=== PATIENT | female | born 1990 | race Caucasian/White ===

== ENCOUNTER 2016-07-31 19:30 | Emergency (ER) | payer BC ==
[2016-07-31 19:37] VITALS: O2SAT 98
[2016-07-31] MEDS ORDERED: ONDANSETRON 4 MG/2 ML VIAL IVP ONE (19:50)
[2016-07-31] MEDS ORDERED: NS 1,000 ML IV ONE (19:50)
[2016-07-31 20:05] LABS: % IMMATURE GRANULYOCYTES 0.3 % (0.0-1.1); ABSOLUTE IMMATURE GRANULOCYTES 0.04 10^3/uL (0.00-0.10); ADD DIFF? NO; ADD MORPH? NO; ADD SCAN? NO; ATYPICAL LYMPHOCYTE FLAG 0 (0-99); FRAGMENT RBC FLAG 0 (0-99); HEMATOCRIT 45.4 % (38.0-47.0); HEMOGLOBIN 15.2 g/dL (12.6-16.3); LEFT SHIFT FLG 0 (0-99); LIPEMIA HEMOLYSIS FLAG 80 (0-99); MEAN CELL HEMOGLOBIN 29.5 pg (27.9-34.1); MEAN CELL HEMOGLOBIN CONCENTR. 33.5 g/dL (32.4-36.7); MEAN CELL VOLUME 88.2 fL (81.5-99.8); MEAN PLATELET VOLUME 10.6 fL (8.7-11.7); PLATELET CLUMPS FLAG 0 (0-99); PLATELET COUNT 318 10^3/uL (150-400); RED BLOOD CELL COUNT 5.15 10^6/uL (4.18-5.33); RED CELL DISTRIBUTION WIDTH 13.6 % (11.5-15.2)
[2016-07-31 20:16] LABS: ALANINE AMINOTRANSFERASE 31 IU/L (9-52); ALBUMIN 4.7 g/dL (3.5-5.0); ALKALINE PHOSPHATASE 83 IU/L (38-126); ANION GAP 14 mEq/L (8-16); ASPARTATE AMINOTRANSFERASE 28 IU/L (14-46); BILIRUBIN,TOTAL 0.8 mg/dL (0.1-1.4); BILIRUBIN-CONJUGATED 0.5 mg/dL (0.0-0.5); BILIRUBIN-UNCONJUGATED 0.3 mg/dL (0.0-1.1); CALCIUM 9.8 mg/dL (8.5-10.4); CARBON DIOXIDE 20 mEq/l (22-31); CHLORIDE 102 mEq/L (97-110); CREATININE 0.7 mg/dL (0.6-1.0); GLOMERULAR FILTRATION RATE > 60; GLUCOSE 88 mg/dL (70-100); SODIUM 136 mEq/L (134-144)
[2016-07-31 20:56] LABS: COLOR YELLOW; LEUKOCYTE ESTERASE,URINE NEGATIVE (NEGATIVE); NITRITE,URINE NEGATIVE (NEGATIVE)
--- NOTE | 2016-07-31 21:05 | EDPHY ---
H & P Stated Complaint: vomiting x2h, shaking, denies abd pain Time Seen by Provider: 07/31/16 19:44 HPI/ROS: Chief complaint: Nausea and vomiting History of present illness: This is a 26-year-old female who presents to the emergency department for evaluation of nausea and vomiting. Patient reports the onset of symptoms earlier today. States symptoms have been persistent. She denies precipitating factors. She denies alleviating factors. She has had some abdominal cramping associated as well as feeling shaky with the nausea and vomiting. She denies other associated signs or symptoms including no fevers or chills, no diarrhea or constipation, no urinary symptoms. She denies sick contacts, foreign travel or antibiotic use. Review of systems: A 10 point review of systems was obtained and other than described above was negative - Personal History LMP (Females 10-55): 15-21 Days Ago Current Tetanus/Diphtheria Vaccine: Unsure Current Tetanus Diphtheria and Acellular Pertussis (TDAP): Unsure - Medical/Surgical History Hx Asthma: No Hx Chronic Respiratory Disease: No Hx Diabetes: No Hx Cardiac Disease: No Hx Renal Disease: No Hx Cirrhosis: No Hx Alcoholism: No Hx HIV/AIDS: No Hx Splenectomy or Spleen Trauma: No Other PMH: denies - Social History Smoking Status: Never smoked - Physical Exam Exam: General Appearance: Alert, nontoxic. Eyes: Pupils equal and round no pallor or injection. ENT, Mouth: Mucous membranes moist. Respiratory: There are no retractions, lungs are clear to auscultation. Cardiovascular: Regular rate and rhythm. Gastrointestinal: Bowel sounds normal. Abdomen soft, nondistended, nontender. Neurological: Alert and oriented x4. Strength and sensation intact and symmetrical. Skin: Warm and dry, no rashes. Musculoskeletal: Neck is supple nontender. Extremities are symmetrical, full range of motion. Psychiatric: Patient is oriented X 3, there is no agitation. Constitutional: Initial Vital Signs Temperature (C) 36.5 C 07/31/16 19:33 Heart Rate 118 H 07/31/16 19:33 Respiratory Rate 16 07/31/16 19:33 Blood Pressure 145/95 H 07/31/16 19:33 O2 Sat (%) 98 07/31/16 19:33 O2 Delivery Mode Room Air Allergies/Adverse Reactions: amphetamine [From Adderall] Allergy (Verified 07/31/16 19:37) dextroamphetamine [From Adderall] Allergy (Verified 07/31/16 19:37) Home Medications: Medication Instructions Recorded Adderall 07/31/16 Ondansetron Odt [Zofran Odt 4 mg 4 mg PO Q4 #6 tab 07/31/16 (*)] Medical Decision Making ED Course/Re-evaluation: Patient seen under the supervision of my secondary supervising physician Dr. Wilfredo Stinson. Patient presents to the emergency department for evaluation of nausea and vomiting. On presentation she is nontoxic. Physical exam is unremarkable. Serial abdominal exams are performed during her ER course and remain benign. Lab studies reveal mild leukocytosis, likely stress reaction. They are otherwise benign. My suspicion for serious underlying pathology is low. I do not believe imaging studies are warranted. She has been IV hydrated and symptomatically treated with Zofran. She is feeling much better. She is tolerating oral challenges. She is comfortable with being discharged home. Home care is discussed. Return precautions are given. Patient voiced understanding and agreement with plan. Differential Diagnosis: Included but not limited to gastritis, gastroenteritis, biliary tract disease pancreatitis, colitis, bowel obstruction can't be urinary tract disease - Data Points Laboratory Results: Laboratory Results 07/31/16 19:50 07/31/16 19:50 07/31/16 07/31/16 07/31/16 20:45 19:50 19:50 WBC RBC Hgb Hct MCV MCH MCHC RDW Plt Count MPV Neut % (Auto) Lymph % (Auto) Bates % (Auto) Eos % (Auto) Baso % (Auto) Nucleat RBC Rel Count Absolute Neuts (auto) Absolute Lymphs (auto) Absolute Monos (auto) Absolute Eos (auto) Absolute Basos (auto) Absolute Nucleated RBC Immature Gran % Immature Gran # Sodium 136 mEq/L mEq/L (134-144) Potassium 4.0 mEq/L mEq/L (3.5-5.2) Chloride 102 mEq/L mEq/L (97-110) Carbon Dioxide 20 mEq/l L mEq/l (22-31) Anion Gap 14 mEq/L mEq/L (8-16) BUN 12 mg/dL mg/dL (7-23) Creatinine 0.7 mg/dL mg/dL (0.6-1.0) Estimated GFR > 60 Glucose 88 mg/dL mg/dL (70-100) Calcium 9.8 mg/dL mg/dL (8.5-10.4) Total Bilirubin 0.8 mg/dL mg/dL (0.1-1.4) Conjugated Bilirubin 0.5 mg/dL mg/dL (0.0-0.5) Unconjugated Bilirubin 0.3 mg/dL mg/dL (0.0-1.1) AST 28 IU/L IU/L (14-46) ALT 31 IU/L IU/L (9-52) Alkaline Phosphatase 83 IU/L IU/L (38-126) Total Protein 8.0 g/dL g/dL (6.3-8.2) Albumin 4.7 g/dL g/dL (3.5-5.0) Lipase 79.0 IU/L IU/L (23-300) Beta HCG, Qual NEGATIVE Urine Color YELLOW Urine Appearance CLEAR Urine pH 6.0 (5.0-7.5) Ur Specific [place] 1.016 (1.002-1.030) Urine Protein NEGATIVE (NEGATIVE) Urine Ketones 1+ H (NEGATIVE) Urine Blood NEGATIVE (NEGATIVE) Urine Nitrate NEGATIVE (NEGATIVE) Urine Bilirubin NEGATIVE (NEGATIVE) Urine Urobilinogen NEGATIVE EU EU (0.2-1.0) Ur Leukocyte Esterase NEGATIVE (NEGATIVE) Ur Culture Indicated? NOT INDICATED (NI) Urine Glucose NEGATIVE (NEGATIVE) 07/31/16 19:50 WBC 14.57 10^3/uL H 10^3/uL (3.80-9.50) RBC 5.15 10^6/uL 10^6/uL (4.18-5.33) Hgb 15.2 g/dL g/dL (12.6-16.3) Hct 45.4 % % (38.0-47.0) MCV 88.2 fL fL (81.5-99.8) MCH 29.5 pg pg (27.9-34.1) MCHC 33.5 g/dL g/dL (32.4-36.7) RDW 13.6 % % (11.5-15.2) Plt Count 318 10^3/uL 10^3/uL (150-400) MPV 10.6 fL fL (8.7-11.7) Neut % (Auto) 67.1 % % (39.3-74.2) Lymph % (Auto) 27.6 % % (15.0-45.0) Bates % (Auto) 4.2 % L % (4.5-13.0) Eos % (Auto) 0.3 % L % (0.6-7.6) Baso % (Auto) 0.5 % % (0.3-1.7) Nucleat RBC Rel Count 0.0 % % (0.0-0.2) Absolute Neuts (auto) 9.79 10^3/uL H 10^3/uL (1.70-6.50) Absolute Lymphs (auto) 4.02 10^3/uL H 10^3/uL (1.00-3.00) Absolute Monos (auto) 0.61 10^3/uL 10^3/uL (0.30-0.80) Absolute Eos (auto) 0.04 10^3/uL 10^3/uL (0.03-0.40) Absolute Basos (auto) 0.07 10^3/uL 10^3/uL (0.02-0.10) Absolute Nucleated RBC 0.00 10^3/uL 10^3/uL (0-0.01) Immature Gran % 0.3 % % (0.0-1.1) Immature Gran # 0.04 10^3/uL 10^3/uL (0.00-0.10) Sodium Potassium Chloride Carbon Dioxide Anion Gap BUN Creatinine Estimated GFR Glucose Calcium Total Bilirubin Conjugated Bilirubin Unconjugated Bilirubin AST ALT Alkaline Phosphatase Total Protein Albumin Lipase Beta HCG, Qual Urine Color Urine Appearance Urine pH Ur Specific [place] Urine Protein Urine Ketones Urine Blood Urine Nitrate Urine Bilirubin Urine Urobilinogen Ur Leukocyte Esterase Ur Culture Indicated? Urine Glucose Medications Given: Discontinued Medications Sodium Chloride (Ns) 1,000 mls @ 0 mls/hr IV ONCE ONE PRN Reason: Wide Open Stop: 07/31/16 19:51 Last Admin: 07/31/16 20:02 Dose: 1,000 mls Ondansetron HCl (Zofran) 4 mg IVP EDNOW ONE Stop: 07/31/16 19:51 Last Admin: 07/31/16 20:02 Dose: 4 mg Departure - Departure Disposition: Home, Routine, Self-Care Clinical Impression: Vomiting Qualifiers: Vomiting type: unspecified Vomiting Intractability: non-intractable Nausea presence: with nausea Qualified Code(s): R11.2 - Nausea with vomiting, unspecified Condition: Good Instructions: Acute Nausea and Vomiting (ED) Additional Instructions: Follow-up with a primary care doctor for recheck If symptoms worsen or new symptoms develop return to the emergency room for recheck Referrals: ADELAIDA BAKER [Other] - As per Instructions [facility],. [Clinic] - As per Instructions Mikel Bardales MD [Medical Doctor] - As per Instructions Prescriptions: Ondansetron Odt [Zofran Odt 4 mg (*)] 4 mg PO Q4 #6 tab
[2016-07-31 21:15] VITALS: BP 122/85; PULSE 96; RESP 20; TEMP 97.9
== END 2016-07-31 21:35 | disposition home or self-care (01) ==
DX: R11.2 Nausea with vomiting, unspecified (principal)
CPT/HCPCS: 96374; J2405

== ENCOUNTER 2018-07-22 01:56 | Inpatient (IN) | payer OTHER ==
[2018-07-22] MEDS ORDERED: OLIVE OIL 118 ML BTL MISC PRN (02:34)
[2018-07-22] MEDS ORDERED: EPSOM SALT 454 GM TP PRN (02:34)
[2018-07-22] MEDS ORDERED: TERBUTALINE SULFATE 1 MG/ML VIAL IV PRN (02:34)
[2018-07-22] MEDS ORDERED: MISOPROSTOL 200 MCG TAB PO PRN (02:34)
[2018-07-22] MEDS ORDERED: AMMONIA AROMATIC 1 EACH AMP IH PRN (02:34)
[2018-07-22] MEDS ORDERED: LIDOCAINE 1% 300 MG/30 ML SDV SC PRN (02:34)
[2018-07-22] MEDS ORDERED: LR 1,000 ML IV PRN (02:34)
[2018-07-22] MEDS ORDERED: IBUPROFEN 600 MG TAB PO PRN (02:34)
[2018-07-22] MEDS ORDERED: OXYTOCIN/RINGERS LACTATE 1,000 ML IV PRN (02:34)
[2018-07-22] MEDS ORDERED: OLIVE OIL 118 ML BTL MISC ONE (02:50)
[2018-07-22] MEDS ORDERED: AMMONIA AROMATIC 1 EACH AMP IH ONE (02:50)
[2018-07-22] MEDS ORDERED: LIDOCAINE 1% 300 MG/30 ML SDV ONE (02:50)
[2018-07-22] MEDS ORDERED: TERBUTALINE SULFATE 1 MG/ML VIAL ONE (02:50)
[2018-07-22] MEDS ORDERED: OXYTOCIN 10 UNIT/ML VIAL ONE (02:51)
[2018-07-22] MEDS ORDERED: MISOPROSTOL 200 MCG TAB ONE (02:51)
[2018-07-22 02:55] LABS: PLATELET COUNT 197 10^3/uL (150-400)
--- NOTE | 2018-07-22 04:58 | GHP ---
[f rep st] PREOP HISTORY AND PHYSICAL DATE OF ADMISSION: 07/22/2018 HISTORY OF PRESENT ILLNESS: The patient is a -[id number]-yvn G2, A1 at 40 weeks and 1 day with a n estimated due date of 07/21, by sure last menstrual period consistent with a 7 week ultrasound. [facility] presents in early active labor. The patient has had a slow building pattern of contractions th at began on Wednesday night, 07/20. The patient had infrequent contraction at that time and they inc reased through the afternoon. She was seen at [facility] in the afternoon and her cervix w as 1 cm dilated, 100% effaced. The patient has not gotten any rest as the contractions continued to build in intensity and frequency. Contractions consistently less than 5 minutes approximately 7 p.m. Bag of water intact. The patient had a slight amount of bleeding after the initial exam at the off ice, good movement. Mild nausea and little p.o. intake due to the painful contractions. The p atient is able to hydrate well. Initial cervical exam on Labor and Delivery showed the patient had a very thin cervix, approximately 2 cm initially, but the cervix peeled open to 4 cm. There is a good amount of bloody show with clots from that exam. An exam approximately an hour later did not show a ny change. A followup exam was 4 cm, 100% effaced at 0 station. Contractions every 3-4 minutes at t his time with moderate intensity. The patient managing well would like to try the tub and then is pl anning on other medications with nitrous and likely an epidural. CARE: The patient has been with [facility] since 15 weeks gestation after transfe r from the [facility]. The patient has not had any major complications through the . She was felt to be size less than dates on palpation at 35 weeks and had an ultrasound that showed es timated weight at the 43rd percentile with normal fluid. LABS: Maternal blood type AB positive with negative antibody screen. RPR nonreactive. Rub aaron immune. Hepatitis B surface antigen negative. HIV negative. Hepatitis C negative. Urine drug screen negative. The patient was tested for cystic fibrosis in November 2017, and was negative. Urin alysis and culture negative. Pap smear from November negative with negative gonorrhea and chlamydia. The patient declined genetic testing on the fetus during the . Initial hematocrit in pregna ncy 41 with good stability at 28 weeks, holding at 40%. Hematocrit was still 38% at 35 weeks. 1-geoff r Glucola was normal. GBS culture was negative. The patient received a Tdap on June 03 and the flu vaccination on 02/02/2018. PAST MEDICAL HISTORY: The patient had a history of anxiety with depression approximately 5 years ago . She did use medication at that time, but has not been on medications for a while. PAST SURGICAL HISTORY: Tonsils removed at age 17 and deviated septal repair, D and C in 2013. PAST OBSTETRIC HISTORY: 2014 terminated 1st trimester. ALLERGIES: The patient has no known drug allergies. CURRENT MEDICATIONS: Only vitamins with DHA. SOCIAL HISTORY: The patient is , lives with her . They live in [place]. The patien serg is a nonsmoker. Prior to occasional alcohol use, but none with the . Occasiona l marijuana use, none in the . FAMILY HISTORY: Significant for the paternal age of 52. ADMISSION HISTORY AND PHYSICAL: GENERAL: The patient is a well-developed, well-nourished white fema le in moderate discomfort with contractions. VITAL SIGNS: All normal. The patient is afebrile. Bl ood pressure 112/82. heart tone monitoring reveals a category 1 tracing with a baseline in the 140s to 150s with moderate variability and accelerations. No decelerations noted. Contractions mickey ry 3-4 minutes. EXTREMITIES: Nontender with no edema. PELVIC EXAM: At this time not repeated. ASSESSMENT: Intrauterine at 40 weeks and 1 day in early active labor. Bag of water intact . GBS negative. Very thin cervix with heavy bloody show with early dilation. PLAN: The patient is going to use the tub and then possibly nitrous and epidural. Offered AROM and the patient will consider that if no change in 1-2 hours when exam repeated. /[id number]/MODL
--- NOTE | 2018-07-22 08:34 | OBPROG ---
Labor Progress Note Assessment/Plan: Assessment: Plan: Subjective/Intrapartum Course: 07/22/18 08:33 patient using nitrous for contractions. labored in the tub. contractions still irregular. desires epidural before AROM. occasional decelerations. status reassuring. Objective: 07/22/18 02:45 Patient ABO/Rh AB POSITIVE 07/22/18 02:45 - FHR Assessment Otero FHR Pattern Variability: Moderate FHR Category: 2 Oxytocin Orders Assessment - Pre-Induction/Augmentation Assessment Gestational Age: 40 week(s) and 1 day(s) ICD10 Worksheet Patient Problems: Problems Problem Status Onset delivery delivered Acute Normal labor Acute
[2018-07-22] MEDS ORDERED: BUPIVACAINE 0.25% 10 ML SDV ONE (08:38)
[2018-07-22] MEDS ORDERED: fentaNYL 2MCG/ML/BUP 0.1% RTU 100 ML BAG EP ONE (08:38)
[2018-07-22] MEDS ORDERED: fentaNYL 2MCG/ML/BUP 0.1% RTU 100 ML EP SCH (09:00)
[2018-07-22] MEDS ORDERED: LR 500 ML IV SCH (09:00)
[2018-07-22] MEDS ORDERED: ONDANSETRON 4 MG/2 ML VIAL IVP PRN ×2 (09:00→12:52)
[2018-07-22] MEDS ORDERED: NALOXONE HCL 0.4 MG/ML INJ IVP PRN ×3 (09:00→12:52)
[2018-07-22] MEDS ORDERED: METOCLOPRAMIDE 10 MG/2 ML VIAL IVP PRN (09:00)
[2018-07-22] MEDS ORDERED: PHENYLEPHRINE HCL 100 MCG/ML SYR IVP PRN ×2 (09:00→12:52)
--- NOTE | 2018-07-22 09:00 | PREANESOB ---
Obstetric Pre-Anesthesia Info - General Info : 2 Para: 0 LUIZ: 07/21/18 Gestational Age: 40 week(s) and 1 day(s) - Info Status: Full Term - Labor Status Labor Epidural: Proposed Anesthesia Allergies/Adverse Reactions: Allergy/AdvReac Type Severity Reaction Status Date / Time No Known Allergies Allergy Verified 07/22/18 02:10 Home Medications: Medication Instructions Recorded Adderall 07/31/16 Ondansetron Odt [Zofran Odt 4 mg 4 mg PO Q4 #6 tab 07/31/16 (*)] Visit Medications: Generic Name Dose Route Start Last Admin Trade Name Freq PRN Reason Stop Dose Admin Ammonia (Aromatic Spirit) 1 each 07/22/18 02:34 Ammonia Aromatic IH 08/01/18 02:33 ONCE PRN Fainting Lactated Ringer's 1,000 mls @ 0 mls/hr 07/22/18 02:34 Lr IV 07/23/18 02:33 PRN PRN SEE PROTOCOL CONDITIONS Protocol Per Protocol Oxytocin/Lactated Ringer's 1,000 mls @ 0 mls/hr 07/22/18 02:34 Pitocin 20 Units/Lr (Premix) IV PRN PRN Post bleeding As Directed Ibuprofen 600 mg 07/22/18 02:34 Motrin PO ONCE PRN post , pain Lidocaine HCl 300 mg 07/22/18 02:34 Lidocaine Hcl 1% SC 01/18/19 02:33 ONCE PRN episiotomy Magnesium Sulfate 454 gm 07/22/18 02:34 Epsom Salt TP 01/18/19 02:33 Q1H PRN perineal discomfort Misoprostol 800 - 1,000 mcg 07/22/18 02:34 Cytotec PO 01/18/19 02:33 ONCE PRN Vaginal Atony/Bleeding [place] Oil 118 ml 07/22/18 02:34 Sweet Oil MISC 01/18/19 02:33 ONCE PRN perineal massage Terbutaline Sulfate 0.25 mg 07/22/18 02:34 Brethine IV 01/18/19 02:33 ONCE PRN Tachysystole Discontinued Medications Generic Name Dose Route Start Last Admin Trade Name Freq PRN Reason Stop Dose Admin Ammonia (Aromatic Spirit) Confirm 07/22/18 02:50 Ammonia Aromatic Administered 07/22/18 02:51 Dose 1 each IH .STK-MED ONE Bupivacaine HCl Confirm 07/22/18 08:38 Sensorcaine 0.25% Sdv Administered 07/22/18 08:39 Dose 10 ml .ROUTE .STK-MED ONE Fentanyl/Bupivacaine HCl Confirm 07/22/18 08:38 Fentanyl/Bupivacaine/Ns 2 Mcg/Ml 0.1% (Premix Administered 07/22/18 08:39 Dose 100 ml EP .STK-MED ONE Lidocaine HCl Confirm 07/22/18 02:50 Lidocaine Hcl 1% Administered 07/22/18 02:51 Dose 300 mg .ROUTE .STK-MED ONE Misoprostol Confirm 07/22/18 02:51 Cytotec Administered 07/22/18 02:52 Dose 1,000 mcg .ROUTE .STK-MED ONE [place] Oil Confirm 07/22/18 02:50 Sweet Oil Administered 07/22/18 02:51 Dose 118 ml MISC .STK-MED ONE Oxytocin Confirm 07/22/18 02:51 Pitocin Administered 07/22/18 02:52 Dose 40 unit .ROUTE .STK-MED ONE Terbutaline Sulfate Confirm 07/22/18 02:50 Brethine Administered 07/22/18 02:51 Dose 1 mg .ROUTE .STK-MED ONE - Vital Signs Height/Weight (Nursing): Height 162.56 cm Weight 77.564 kg - Focused Exam Mallampati Score: Class 2 Labs: 07/22/18 02:45 Patient ABO/Rh AB POSITIVE 07/22/18 02:45 - Plan Urgent/Emergent Case: Anes eval completed preop but documented later for safe timely pt care
[2018-07-22] MEDS ORDERED: LR 500 ML IV PRN (10:02)
--- NOTE | 2018-07-22 10:08 | OBPROG ---
Labor Progress Note Assessment/Plan: Assessment: Plan: Subjective/Intrapartum Course: 07/22/18 08:33 patient using nitrous for contractions. labored in the tub. contractions still irregular. desires epidural before AROM. occasional decelerations. status reassuring. 07/22/18 10:04 patient is comfortable with epidural. AROM. scant amount of meconium stained amniotic fluid. just prior to AROM - had small decel. IUPC and FECG placed without difficulty. status was reassuring then had two variables one to the 30's. Amnioinfusion started. inadequate contractions per IUPC. discussed possibility of c section with patient and . discussed starting pitocin due to inadequate contractions. will follow closely. questions answered. anesthesia aware. Objective: 07/22/18 02:45 Patient ABO/Rh AB POSITIVE 07/22/18 02:45 - SVE Dilation (cm): 5 Effacement (%): 90 Station: -1 Membranes: AROM - Contraction Pattern Assessment Current Contraction Pattern: Irregular - Procedures Non-surgical Procedures: Amniotomy, FSE, IUPC Oxytocin Orders Assessment - Pre-Induction/Augmentation Assessment Gestational Age: 40 week(s) and 1 day(s) ICD10 Worksheet Patient Problems: Problems Problem Status Onset delivery delivered Acute Normal labor Acute
[2018-07-22] MEDS ORDERED: OXYTOCIN/RINGERS LACTATE 500 ML IV SCH (10:30)
--- NOTE | 2018-07-22 11:00 | OBPROG ---
Labor Progress Note Assessment/Plan: Assessment: Plan: Subjective/Intrapartum Course: 07/22/18 08:33 patient using nitrous for contractions. labored in the tub. contractions still irregular. desires epidural before AROM. occasional decelerations. status reassuring. 07/22/18 10:04 patient is comfortable with epidural. AROM. scant amount of meconium stained amniotic fluid. just prior to AROM - had small decel. IUPC and FECG placed without difficulty. status was reassuring then had two variables one to the 30's. Amnioinfusion started. inadequate contractions per IUPC. discussed possibility of c section with patient and . discussed starting pitocin due to inadequate contractions. will follow closely. questions answered. anesthesia aware. 07/22/18 10:59 patient comfortable with epidural. pitocin started for inadequate contractions. positive scalp stimulation. will continue to follow closely Objective: 07/22/18 02:45 Patient ABO/Rh AB POSITIVE 07/22/18 02:45 - SVE Dilation (cm): 5, 6 Effacement (%): 100 Station: -1 Membranes: AROM - Contraction Pattern Assessment Current Contraction Pattern: Irregular - FHR Assessment Otero FHR Pattern Variability: Moderate FHR Category: 2 - Procedures Non-surgical Procedures: Amniotomy, FSE, IUPC Oxytocin Orders Assessment - Pre-Induction/Augmentation Assessment Gestational Age: 40 week(s) and 1 day(s) ICD10 Worksheet Patient Problems: Problems Problem Status Onset Normal labor Acute
[2018-07-22] MEDS ORDERED: LR 500 ML IV ONE (11:24)
[2018-07-22] MEDS ORDERED: ceFAZolin 2 GM/DEXTROSE 100 ML IV ONE (11:24)
[2018-07-22] MEDS ORDERED: AZITHROMYCIN IV 500 MG in NS 250 ML IV ONE (11:24)
--- NOTE | 2018-07-22 11:26 | OBPROG ---
Labor Progress Note Assessment/Plan: Assessment: Plan: Subjective/Intrapartum Course: 07/22/18 08:33 patient using nitrous for contractions. labored in the tub. contractions still irregular. desires epidural before AROM. occasional decelerations. status reassuring. 07/22/18 10:04 patient is comfortable with epidural. AROM. scant amount of meconium stained amniotic fluid. just prior to AROM - had small decel. IUPC and FECG placed without difficulty. status was reassuring then had two variables one to the 30's. Amnioinfusion started. inadequate contractions per IUPC. discussed possibility of c section with patient and . discussed starting pitocin due to inadequate contractions. will follow closely. questions answered. anesthesia aware. 07/22/18 10:59 patient comfortable with epidural. pitocin started for inadequate contractions. positive scalp stimulation. will continue to follow closely 07/22/18 11:25 fhts have had decreased variability and recurrent decels with contractions. pitocin off. patient remote from delivery. recommended we proceed with primary c section. patient agreeable. patient repositioned. anesthesia notified. will proceed with [facility] Objective: 07/22/18 02:45 Patient ABO/Rh AB POSITIVE 07/22/18 02:45 - SVE Membranes: AROM - Contraction Pattern Assessment Current Contraction Pattern: Irregular - Procedures Non-surgical Procedures: Amniotomy, FSE, IUPC Oxytocin Orders Assessment - Pre-Induction/Augmentation Assessment Gestational Age: 40 week(s) and 1 day(s) ICD10 Worksheet Patient Problems: Problems Problem Status Onset Normal labor Acute
[2018-07-22] MEDS ORDERED: LR 1,000 ML IV SCH (11:30)
[2018-07-22] MEDS ORDERED: CEFAZOLIN 2 GM/DEXTROSE/100 ML BAG IV ONE (11:31)
[2018-07-22] MEDS ORDERED: CITRIC ACID/SODIUM CITRATE 30 ML UDCUP ONE (11:39)
[2018-07-22] MEDS ORDERED: LIDO/EPI 2% **for epidural** 20 ML SDV ONE (11:41)
--- NOTE | 2018-07-22 11:42 | POSTANESTH ---
Post Anesthetic Evaluation Cardiovascular Status: Normal, Stable Respiratory Status: Normal, Stable Level of Consciousness/Mental Status: Can Participate in Eval, Alert and Oriented Pain Control: Adequate, Prn Tx Ordered Nausea/Vomiting Control: Inadeq, Add Tx Reqired Complications Possibly Related to Anesthesia: None Noted (Pt with nausea throughout C/S, persisting into PACU.)
--- NOTE | 2018-07-22 11:44 | PREANESOB ---
Obstetric Pre-Anesthesia Info - General Info Proposed Procedure: C/S, primary NPO Start Time: 11:30 (water, NPO for solids after MN) : 2 Para: 0 LUIZ: 07/21/18 Gestational Age: 40 week(s) and 1 day(s) - Info Status: Full Term FHR Pattern: Non-reassuring - Labor Status Cervical Dilation per last OB SVE: 5, 6 Station per last OB SVE: -1 Pitocin: In Use Indications for Current Section: Non-reas. Status Labor Epidural: Yes Anesthesia ROS: anxious Allergies/Adverse Reactions: Allergy/AdvReac Type Severity Reaction Status Date / Time No Known Allergies Allergy Verified 07/22/18 02:10 Home Medications: Medication Instructions Recorded Adderall 07/31/16 Ondansetron Odt [Zofran Odt 4 mg 4 mg PO Q4 #6 tab 07/31/16 (*)] Visit Medications: Generic Name Dose Route Start Last Admin Trade Name Freq PRN Reason Stop Dose Admin Ammonia (Aromatic Spirit) 1 each 07/22/18 02:34 Ammonia Aromatic IH 08/01/18 02:33 ONCE PRN Fainting Diphenhydramine HCl 25 - 50 mg 07/22/18 09:00 Benadryl Injection IVP 01/18/19 08:59 Q6HRS PRN Itching Ephedrine Sulfate 10 mg 07/22/18 09:00 Ephedrine Sulfate IV 01/18/19 08:59 .Q2M PRN Hypotension Lactated Ringer's 1,000 mls @ 0 mls/hr 07/22/18 02:34 Lr IV 07/23/18 02:33 PRN PRN SEE PROTOCOL CONDITIONS Protocol Per Protocol Oxytocin/Lactated Ringer's 1,000 mls @ 0 mls/hr 07/22/18 02:34 Pitocin 20 Units/Lr (Premix) IV PRN PRN Post bleeding As Directed Fentanyl/Bupivacaine HCl 100 mls @ 0 mls/hr 07/22/18 09:00 Fentanyl/Bupivacaine/Ns 2 Mcg/Ml 0.1% (Premix EP 08/01/18 08:59 CONT IRENE Protocol As Directed Lactated Ringer's 500 mls @ 0 mls/hr 07/22/18 09:00 Lr IV 01/18/19 08:59 CONT IRENE As Directed Lactated Ringer's 500 mls @ 500 mls/hr 07/22/18 10:02 Lr IV 07/23/18 10:02 PRN PRN Maternal Hypotension Oxytocin/Lactated Ringer's 500 mls @ 0 mls/hr 07/22/18 10:30 07/22/18 10:25 Pitocin 30 Units/Lr (Premix) IV 01/18/19 10:29 500 mls CONT IRENE Administration Protocol Per Protocol Azithromycin 500 mg/ Sodium 255 mls @ 255 mls/hr 07/22/18 11:24 Chloride IV 07/22/18 12:23 EDNOW ONE Protocol Cefazolin Sodium/Dextrose 100 mls @ 200 mls/hr 07/22/18 11:24 Ancef IV 07/22/18 11:53 ONCALL ONE Protocol Lactated Ringer's 1,000 mls @ 125 mls/hr 07/22/18 11:30 Lr IV 07/23/18 11:29 CONT IRENE Ibuprofen 600 mg 07/22/18 02:34 Motrin PO ONCE PRN post , pain Lidocaine HCl 300 mg 07/22/18 02:34 Lidocaine Hcl 1% SC 01/18/19 02:33 ONCE PRN episiotomy Magnesium Sulfate 454 gm 07/22/18 02:34 Epsom Salt TP 01/18/19 02:33 Q1H PRN perineal discomfort Metoclopramide HCl 20 mg 07/22/18 09:00 Reglan Injection IVP 01/18/19 08:59 Q6HRS PRN Nausea/Vomiting, Can't Take PO Misoprostol 800 - 1,000 mcg 07/22/18 02:34 Cytotec PO 01/18/19 02:33 ONCE PRN Vaginal Atony/Bleeding Naloxone HCl 0.4 mg 07/22/18 09:00 Narcan IVP 01/18/19 08:59 PRN PRN Respiratory depression Rison Oil 118 ml 07/22/18 02:34 Sweet Oil MISC 01/18/19 02:33 ONCE PRN perineal massage Ondansetron HCl 4 mg 07/22/18 09:00 Zofran IVP 07/23/18 08:59 Q4HRS PRN Nausea/Vomiting, Can't Take PO Phenylephrine HCl 100 mcg 07/22/18 09:00 Neosynephrine IVP 01/18/19 08:59 .Q2M PRN Hypotension Terbutaline Sulfate 0.25 mg 07/22/18 02:34 Brethine IV 01/18/19 02:33 ONCE PRN Tachysystole Discontinued Medications Generic Name Dose Route Start Last Admin Trade Name Yaakov PRN Reason Stop Dose Admin Ammonia (Aromatic Spirit) Confirm 07/22/18 02:50 Ammonia Aromatic Administered 07/22/18 02:51 Dose 1 each IH .STK-MED ONE Bupivacaine HCl Confirm 07/22/18 08:38 Sensorcaine 0.25% Sdv Administered 07/22/18 08:39 Dose 10 ml .ROUTE .STK-MED ONE Cefazolin Sodium/Dextrose Confirm 07/22/18 11:31 Ancef Administered 07/22/18 11:32 Dose 2 gm IV .STK-MED ONE Citric Acid/Sodium Citrate Confirm 07/22/18 11:39 Bicitra Administered 07/22/18 11:40 Dose 30 ml .ROUTE .STK-MED ONE Fentanyl/Bupivacaine HCl Confirm 07/22/18 08:38 Fentanyl/Bupivacaine/Ns 2 Mcg/Ml 0.1% (Premix Administered 07/22/18 08:39 Dose 100 ml EP .STK-MED ONE Lactated Ringer's 500 mls @ 0 mls/hr 07/22/18 11:24 Lr IV 07/22/18 11:25 ONCE ONE As Directed Lidocaine HCl Confirm 07/22/18 02:50 Lidocaine Hcl 1% Administered 07/22/18 02:51 Dose 300 mg .ROUTE .STK-MED ONE Lidocaine/Epinephrine Confirm 07/22/18 11:41 Xylocaine 2%-Epi 1:200,000 Administered 07/22/18 11:42 Dose 40 ml .ROUTE .STK-MED ONE Misoprostol Confirm 07/22/18 02:51 Cytotec Administered 07/22/18 02:52 Dose 1,000 mcg .ROUTE .STK-MED ONE Rison Oil Confirm 07/22/18 02:50 Sweet Oil Administered 07/22/18 02:51 Dose 118 ml MISC .STK-MED ONE Oxytocin Confirm 07/22/18 02:51 Pitocin Administered 07/22/18 02:52 Dose 40 unit .ROUTE .STK-MED ONE Terbutaline Sulfate Confirm 07/22/18 02:50 Brethine Administered 07/22/18 02:51 Dose 1 mg .ROUTE .STK-MED ONE - Anesthesia History Response to Local Anesthetics: Normal Anesthesia & Operative History: No Prior Problems Family Anesthesia History: Negative - Vital Signs Latest Vital Signs (Nursing): See nursing notes Height/Weight (Nursing): Height 162.56 cm Weight 77.564 kg - Focused Exam Neck exam: FROM Mallampati Score: Class 2 Mouth exam: normal dental/mouth exam Pulmonary: clear to auscultation Cardiovascular: regular rate and rhythym Labs: 07/22/18 02:45 Patient ABO/Rh AB POSITIVE 07/22/18 02:45
[2018-07-22] MEDS ORDERED: OXYTOCIN 100 UNITS/10 ML VIAL ONE (11:49)
[2018-07-22] MEDS ORDERED: morphINE PF 5 MG/10 ML INJ ONE (11:49)
[2018-07-22] MEDS ORDERED: ONDANSETRON 4 MG/2 ML VIAL ONE (12:08)
[2018-07-22] MEDS ORDERED: OXYCODONE/APAP 5/325 TAB PO PRN (12:52)
[2018-07-22] MEDS ORDERED: fentaNYL 100 MCG/2 ML INJ IVP PRN (12:52)
[2018-07-22] MEDS ORDERED: BISACODYL 10 MG SUPP PR PRN (13:05)
[2018-07-22] MEDS ORDERED: LACTULOSE 20 GM/30 ML UDCUP PO PRN (13:05)
[2018-07-22] MEDS ORDERED: MAGNESIUM HYDROXIDE 30 ML UDCUP PO PRN (13:05)
[2018-07-22] MEDS ORDERED: PROMETHAZINE HCL 25 MG/ML INJ IVP PRN (13:05)
[2018-07-22] MEDS ORDERED: POLYETHYLENE GLYCOL 3350 17 GM PKT PO PRN (13:05)
[2018-07-22] MEDS ORDERED: oxyCODONE IR 5 MG TAB PO PRN (13:08)
--- NOTE | 2018-07-22 13:39 | OBDEL ---
Info Type: Primary Presentation at Delivery: Vertex L&D Analgesia/Anesthesia Type: Epidural GBS+: No Intrapartum Medications: Generic Name Dose Route Start Last Admin Trade Name Yaakov PRN Reason Stop Dose Admin Oxytocin/Lactated Ringer's 500 mls @ 0 mls/hr 07/22/18 10:30 07/22/18 10:25 Pitocin 30 Units/Lr (Premix) IV 01/18/19 10:29 500 mls CONT IRENE Administration Protocol Per Protocol - Hospital Course Intrapartum: 07/22/18 08:33 patient using nitrous for contractions. labored in the tub. contractions still irregular. desires epidural before AROM. occasional decelerations. status reassuring. 07/22/18 10:04 patient is comfortable with epidural. AROM. scant amount of meconium stained amniotic fluid. just prior to AROM - had small decel. IUPC and FECG placed without difficulty. status was reassuring then had two variables one to the 30's. Amnioinfusion started. inadequate contractions per IUPC. discussed possibility of c section with patient and . discussed starting pitocin due to inadequate contractions. will follow closely. questions answered. anesthesia aware. 07/22/18 10:59 patient comfortable with epidural. pitocin started for inadequate contractions. positive scalp stimulation. will continue to follow closely 07/22/18 11:25 fhts have had decreased variability and recurrent decels with contractions. pitocin off. patient remote from delivery. recommended we proceed with primary c section. patient agreeable. patient repositioned. anesthesia notified. will proceed with pltcs Indications for Delivery: Spontaneous Labor Vaginal Delivery - Labor and Delivery Onset of Contractions Date: 07/21/18 Onset of Contractions Time: 19:30 Non-surgical Procedures: Amniotomy, FSE, IUPC Cord Gases: Cord Gases Cord Blood PCO2 TNP 07/22/18 12:15 Cord Base Excess TNP 07/22/18 12:15 Cord ABG pH TNP 07/22/18 12:15 Cord VBG pH 7.41 (7.20-7.42) 07/22/18 12:15 Operative Report - Delivery Pre-op Diagnoses: IUP 40 1/7 weeks, intolerance of labor remote from delivery, meconium stained fluid Post-op Diagnoses: same as preop plus nuchal cord x 1 History of Prior Section: No Nulliparous Prior to Delivery: Yes Indications for Current Section: Non-reas. Status Procedure: Unscheduled, Low Transverse Surgeon: Patricia Helm [employer] Controller: Jessa Brewster (proctoring marlee DAMON) Anesthesiologist: Akosua Wakefield Complications: Nucal Cord EBL: 600 Cord Gases: Cord Gases Cord Blood PCO2 TNP 07/22/18 12:15 Cord Base Excess TNP 07/22/18 12:15 Cord ABG pH TNP 07/22/18 12:15 Cord VBG pH 7.41 (7.20-7.42) 07/22/18 12:15 [place] Data LUIZ: 07/21/18 Gestational Age: 40 week(s) and 1 day(s) [place] Delivery Date: 07/22/18 Delivery Time: 12:15 Sex of : Male Score (1 Min): 9 Score (5 Min): 9 ICD10 Worksheet Patient Problems: Problems Problem Status Onset Normal labor Acute
[2018-07-22] MEDS: KETOROLAC 30 MG/1 ML SDV IVP SCH ×2 (14:44→21:21)
--- NOTE | 2018-07-22 17:19 | GOP ---
[f rep st] OPERATIVE REPORT DATE OF OPERATION: 07/22/2018 SURGEON: Patricia Helm DO LIQUID CHLORINE OPERATOR: 1. KELECHI Brown. 2. Jacqueline Valles CNM. ANESTHESIA: Epidural with Duramorph. ANESTHESIOLOGIST: Akosua Wakefield MD PREOPERATIVE DIAGNOSIS: 1. Intrauterine at 40-1/7 weeks' gestation. 2. Meconium-stained fluid. 3. intolerance of labor remote from delivery. POSTOPERATIVE DIAGNOSIS: 1. Intrauterine at 40-1/7 weeks' gestation. 2. Meconium-stained fluid. 3. intolerance of labor remote from delivery. 4. Nuchal cord x1. PROCEDURE PERFORMED: Primary low transverse section. FINDINGS: 1. Viable female infant in the cephalic presentation with a nuchal cord and possible occult cord, de livered at 12:15 a.m. 's were 9 and 9. 2. Intact placenta with 3-vessel cord. 3. Normal ovaries, uterus and tubes. ESTIMATED BLOOD LOSS: 600 cc. INDICATIONS: The patient is a 28-year-old 1, para 1-0-0-1, who was 40-1/7 weeks' gestation. She began having contractions, increasing in frequency and intensity last night. She arrived to lab or and delivery and was 3 cm dilated. She did have a slight increased bloody show over normal. She slowly progressed to 4 cm and was using nitrous oxide. status overall was reassuring. However , there were periods of decreased variability and deceleration, so discussion of augmentation was mad e. Patient elected to have an epidural placed before rupture of membranes. Membranes were artificia lly ruptured and a scant amount of a meconium-stained fluid was noted. Intrauterine pressure cathete r and scalp electrode were placed without difficulty. status was overall reassuring; how ever, she did again continue to have periods of decreased variability and variable and/or late decele rations. Contractions were not adequate, so discussion was had about starting Pitocin. Pitocin was then started. We never got above 2 milliunits of Pitocin because the baby progressively was not tole rating labor. Discussion was had with the patient. Amnioinfusion was done and status was reas suring. However, because of the recurrent variable decelerations, decision was made to proceed with a primary low transverse section. Risks and benefits of the procedure were reviewed with th e patient, and the patient was properly consented. DESCRIPTION OF PROCEDURE: The patient was taken to the operating room with intravenous fluids in sandrita ce. She was given 2 g of Ancef and 500 mg of Zithromax, and her epidural was bolused. Venodynes wer e placed on her lower extremities. Montoya catheter was already in place. She was then prepped and dr aped in the normal sterile fashion. Anesthesia was initially tested and not found to be adequate, so she was given another bolus and waited. Anesthesia was assessed and found to be adequate. A Pfanne nstiel skin incision was then made 2 fingerbreadths above the pubic symphysis. The incision was then carried through to the underlying layer of fascia with the Bovie. The fascia was then nicked in the midline and fascial incision was extended laterally. The superior aspect of fascial incision was th en grasped with a Jorje, tented up, and the underlying rectus muscle dissected off bluntly with the Bovie. Attention was then turned to the inferior aspect of the fascial incision, which in a similar fashion was grasped with a Jorje, tented up, and the underlying rectus muscle dissected off bluntly with the Bovie. The rectus muscle was then in the midline. The peritoneum was identified, tented up, and entered sharply with the Metzenbaum scissors. The incision was extended superiorly a nd inferiorly with excellent visualization of the bladder. The vesicouterine peritoneum was identifi ed, tented up, and entered sharply with the Metzenbaum scissors. The incision was extended laterally and a bladder flap created digitally. The bladder blade was then reinserted. The uterus was then i ncised in a low transverse fashion with a scalpel. The uterine incision was extended laterally. The infant's head was then delivered through the incision. Nuchal cord x1 was reduced and a possible oc cult cord prolapse was noted upon entering the uterus, as there was a loop of cord right near the hys terotomy. Delayed cord clamping x1 minute was performed. Cord was then clamped x2 and cut, and the infant was handed off to waiting nurse practitioner. Intact placenta with 3-vessel cord was then delivered. Cord blood was also obtained. The uterus was then exteriorized and cleared of all clots and debris, and wrapped in a moist laparotomy sponge. The bladder blade was then reinserted. The hysterotomy was closed with 0 Vicryl in a running locked fashion. A second 0 Vicryl stitch was u sed to imbricate the uterine incision. Hemostasis was assured. Ovaries, uterus, and tubes were unre markable. There were several small subserosal fibroids noted. The uterus was then returned to the p atient's abdomen and gutters were cleared of all clots and debris. The hysterotomy remained hemostat ic. Peritoneum was reapproximated with 3-0 Vicryl in a running fashion. Rectus muscle was reapproxi mated with 2-0 Vicryl in a running fashion. The fascia was closed with 0 Vicryl in a running fashion . Wei tissue was reapproximated with 2-0 Vicryl in a running fashion. Subcuticular tissue was re approximated with 3-0 Vicryl in a running fashion. The skin was then closed with iris. Sponge, l ap, and needle counts were correct x2. The patient was transported to the recovery room in [facility]. /[id number]/MODL
[2018-07-22] MEDS: ACETAMINOPHEN 325 MG TAB PO SCH (21:22)
[2018-07-23] MEDS: SENNOSIDES/DOCUSATE SODIUM TAB PO SCH ×3 (00:06→22:45)
[2018-07-23] MEDS: ACETAMINOPHEN 325 MG TAB PO SCH ×5 (03:29→22:45)
[2018-07-23] MEDS: KETOROLAC 30 MG/1 ML SDV IVP SCH ×2 (03:30→11:12)
[2018-07-23] MEDS: SIMETHICONE 80 MG TAB CHEW PO PRN ×2 (11:12→16:36)
[2018-07-23] MEDS ORDERED: KETOROLAC 30 MG/1 ML SDV IVP SCH (11:15)
--- NOTE | 2018-07-23 11:58 | OBPP ---
Progress Note Assessment/Plan: Assessment: 28 PPD#1 s/p primary LTCS - intol of labor, after spont labor at 40w1d, doing well. Urinary catheter out and voiding spontaneously. Mild anemia - will restart with iron. Plan:Continue routine post op cares. Loreta Patterson MD, FACOG 07/23/18 11:54 Subjective/ Course: Pt doing well. Has been up and out of bed, ambulating without difficulty. Has voided twice since urinary catheter out - no issues. Brittany reg diet without nausea today (had some last night). No flatus yet. Pain well controlled with Tylenol and ibuprofen. Working with human factors specialist on . Baby in room and doing well. Mod lochia. 07/23/18 12:09 Objective: 07/23/18 04:20 Patient ABO/Rh AB POSITIVE 07/22/18 02:45 Temp Pulse Resp BP Pulse Ox 36.1 C 75 16 95/65 L 95 07/23/18 08:57 07/23/18 08:57 07/23/18 08:57 07/23/18 08:57 07/23/18 08:57 Intake and Output 07/22/18 07/23/18 07/23/18 17:59 05:59 17:59 Intake Total 700 1750 Output Total 1350 1600 250 Balance -650 150 -250 Intake: Oral (ml) 950 IV Intake (ml) 700 800 Output: Urine (ml) 550 1600 250 Catheter 550 1600 Toilet 250 Estimated Blood Loss (ml) 800 Other: Intake Quantity Yes Sufficient Number of Voids Toilet 1 Gen - pleasant, NAD CV - RRR chest - CTAB abd - soft, + bs, dressing - C/D/I, fundus firm at u-2 ext - calves NT, trace edema Uterine Position/Fundal Height: Umbilicus -2 Uterine Tone: Firm
[2018-07-23] MEDS: IBUPROFEN 600 MG TAB PO SCH ×2 (16:34→22:46)
[2018-07-23] MEDS: PRENATAL VIT 1 EACH TAB PO SCH (16:36)
[2018-07-24] MEDS: ACETAMINOPHEN 325 MG TAB PO SCH ×4 (04:53→23:59)
[2018-07-24] MEDS: IBUPROFEN 600 MG TAB PO SCH ×4 (04:53→23:58)
[2018-07-24] MEDS: PRENATAL VIT 1 EACH TAB PO SCH (11:58)
--- NOTE | 2018-07-24 12:30 | OBPP ---
Progress Note Assessment/Plan: Assessment: pod# 2 s/p PLTCS for intolerance of labor remote from delivery breast feeding uncomplicated post operative and post course Rh+/RI Plan: 07/24/18 12:30 Subjective/ Course: Pt doing well. Has been up and out of bed, ambulating without difficulty. Has voided twice since urinary catheter out - no issues. Brittany reg diet without nausea today (had some last night). No flatus yet. Pain well controlled with Tylenol and ibuprofen. Working with behavior management specialist on . Baby in room and doing well. Mod lochia. 07/23/18 12:09 07/24/18 12:31 patient is doing great. recovery much easier than she expected. pain is well controlled. normal lochia. denies headache and changes in vision. working on breast feeding. denies headache and changes in vision. passing gas. had a bowel movement. Objective: 07/23/18 04:20 Patient ABO/Rh AB POSITIVE 07/22/18 02:45 Temp Pulse Resp BP Pulse Ox 36.6 C 86 16 114/78 97 07/24/18 08:19 07/24/18 08:19 07/24/18 08:19 07/24/18 08:19 07/24/18 08:19 Physical Exam - Physical Exam Neck: non-tender, full range of motion, supple Respiratory: chest non-tender, lungs clear, normal breath sounds Cardiac/Chest: normal peripheral pulses, regular rate, rhythm Abdomen: normal bowel sounds, non-tender, other (fundus firm and non tender) Extremities: normal range of motion, non-tender, normal inspection, normal capillary refill Skin: normal color, warm/dry Neuro/Psych: no motor/sensory deficits, alert, normal mood/affect, oriented x 3
--- NOTE | 2018-07-24 14:39 | POSTANESTH ---
Post Anesthetic Evaluation Cardiovascular Status: Normal, Stable Respiratory Status: Normal, Stable Level of Consciousness/Mental Status: Can Participate in Eval, Mildly Sleepy, Arousable Pain Control: Adequate, Prn Tx Ordered Nausea/Vomiting Control: Adequate, Prn Tx Ordered Complications Possibly Related to Anesthesia: None Noted (Duramorph Follow-Up)
[2018-07-24] MEDS: SENNOSIDES/DOCUSATE SODIUM TAB PO SCH (18:09)
[2018-07-25] MEDS: SENNOSIDES/DOCUSATE SODIUM TAB PO SCH ×2 (00:20→10:53)
[2018-07-25] MEDS: IBUPROFEN 600 MG TAB PO SCH ×2 (05:47→11:49)
[2018-07-25] MEDS: ACETAMINOPHEN 325 MG TAB PO SCH ×2 (05:47→11:48)
[2018-07-25] MEDS: PRENATAL VIT 1 EACH TAB PO SCH (09:09)
--- NOTE | 2018-07-25 09:47 | OBPP ---
Progress Note Assessment/Plan: Assessment: POD 3 s/p primary c/s for intol Plan: ready for d/c, working on pumping and BF 07/25/18 09:39 Subjective/ Course: Pt doing well. Has been up and out of bed, ambulating without difficulty. Has voided twice since urinary catheter out - no issues. Brittany reg diet without nausea today (had some last night). No flatus yet. Pain well controlled with Tylenol and ibuprofen. Working with photo specialist on . Baby in room and doing well. Mod lochia. 07/23/18 12:09 07/24/18 12:31 patient is doing great. recovery much easier than she expected. pain is well controlled. normal lochia. denies headache and changes in vision. working on breast feeding. denies headache and changes in vision. passing gas. had a bowel movement. 07/25/18 09:40 Pt doing well. She's managing with ibu/tyl fine. Would like script for couple narcs if needed with d/c. has had BM and is urinating fine. producing colostrum and baby making good attempts at BF. Bld is light. Objective: 07/23/18 04:20 Patient ABO/Rh AB POSITIVE 07/22/18 02:45 Temp Pulse Resp BP Pulse Ox 36.4 C 70 16 122/80 H 97 07/24/18 20:00 07/24/18 20:00 07/24/18 20:00 07/24/18 20:00 07/24/18 20:00 Uterine Position/Fundal Height: Umbilicus -1 Uterine Tone: Firm Physical Exam - Physical Exam Abdomen: non-tender (approp post op tenderness), soft, incision (CDI, iris in place) Extremities: non-tender, normal inspection, pedal edema (minimal) Skin: normal color, warm/dry Neuro/Psych: alert, normal mood/affect
--- NOTE | 2018-07-25 09:51 | OBGCSDC ---
General Delivery Information - General Info : 2 Para: 1 Abortions: 1 Type: Primary L&D Analgesia/Anesthesia Type: Epidural, Spinal Admission Date: 07/22/18 Labs: Patient ABO/Rh AB POSITIVE 07/22/18 02:45 Hct 36.0 % (38.0-47.0) L 07/23/18 04:20 - Hospital Course Intrapartum: 07/22/18 08:33 patient using nitrous for contractions. labored in the tub. contractions still irregular. desires epidural before AROM. occasional decelerations. status reassuring. 07/22/18 10:04 patient is comfortable with epidural. AROM. scant amount of meconium stained amniotic fluid. just prior to AROM - had small decel. IUPC and FECG placed without difficulty. status was reassuring then had two variables one to the 30's. Amnioinfusion started. inadequate contractions per IUPC. discussed possibility of c section with patient and . discussed starting pitocin due to inadequate contractions. will follow closely. questions answered. anesthesia aware. : Pt doing well. Has been up and out of bed, ambulating without difficulty. Has voided twice since urinary catheter out - no issues. Brittany reg diet without nausea today (had some last night). No flatus yet. Pain well controlled with Tylenol and ibuprofen. Working with retail support specialist on . Baby in room and doing well. Mod lochia. 07/23/18 12:09 07/24/18 12:31 patient is doing great. recovery much easier than she expected. pain is well controlled. normal lochia. denies headache and changes in vision. working on breast feeding. denies headache and changes in vision. passing gas. had a bowel movement. 07/25/18 09:40 Pt doing well. She's managing with ibu/tyl fine. Would like script for couple narcs if needed with d/c. has had BM and is urinating fine. producing colostrum and baby making good attempts at BF. Bld is light. Vaginal - Procedures Non-surgical Procedures: Amniotomy, FSE, IUPC - Delivery Providers Surgeon: Patricia Helm [employer]: Jessa Brewster [facility] Anesthesiologist: Akosua Wakefield - Delivery Number of Prior Sections: 0 Indications for Current Section: Non-reas. Status Non-surgical Procedures: Amniotomy, FSE, IUPC Surgical Procedures: Unscheduled [place] Data LUIZ: 07/21/18 Gestational Age: 40 week(s) and 4 day(s) [place] Delivery Date: 07/22/18 Delivery Time: 12:15 Sex of : Male Weight (gm): 2895 g Score (1 Min): 9 Score (5 Min): 9 Discharge Information - Discharge Information Prescriptions: oxyCODONE IR [Oxycodone Ir (*)] 5 - 10 mg PO Q4HRS PRN #3 tab PRN Reason: Pain, Severe Able To Take Po Condition: Good Instruction/Follow Up: See Instruction Sheet, Two Weeks (with [place] and therapist) , Six Weeks (with [place])
[2018-07-25 10:36] VITALS: BP 122/86
== END 2018-07-25 15:30 | disposition home or self-care (01) | DRG 788 ==
LOC: FLD 01:56 → OBSVTOIN 02:35 → FOB 14:55
PROVIDERS: ADMIT Obstetrics & Gynecology; ATTEND Obstetrics & Gynecology
PROC: 10907ZC Drainage of Amniotic Fluid, Therapeutic from Products of Conception, Via Natural or Artificial Opening (ICD-10-PCS; principal; 2018-07-22)
PROC: 10D00Z1 Extraction of Products of Conception, Low, Open Approach (ICD-10-PCS; principal; 2018-07-22)
DX: O76 Abnormality in fetal heart rate and rhythm complicating labor and delivery (principal); Z37.0 Single live birth; Z3A.40 40 weeks gestation of pregnancy; O69.82X0 Labor and delivery complicated by other cord entanglement, without compression, not applicable or unspecified
CPT/HCPCS: J0456; J0690; J1885; J2274; J2370; J2405; J2550; J2590; J3105